=== PATIENT | male | born 1970 | race Caucasian/White ===

== ENCOUNTER 2016-08-31 09:56 | Day surgery (SDC) | payer OTHER ==
[2016-08-30 11:46] VITALS: BMI 45.9
[~2016-08-31] VITALS: Ht 165.1 cm; Wt 124.4 kg
[2016-08-31] VITALS (7 sets, daily range): BP systolic 130–162; BP diastolic 77–91; PULSE 66–82; RESP 14–22; Ht 165.1 cm; Wt 124.4 kg
[~2016-08-31 09:56] MED LIST: ACET325T33 PO; BACTDS PO; CEPH-443 PO; CIPR500T4 PO; CYCL-319 PO; DICL50TA11 PO; DICY10CA60 PO; DOCU-144 PO; HYDR-762 PO; HYDR-906 PO; LISI10TA2 PO; NAPR-260 PO; PRED20TA PO; TAMS-14 PO; ULT50 PO
[2016-08-31] MEDS ORDERED: CEFAZOLIN 2 GM/50 ML (PMX) 50 ML IVPB ONE (10:00)
[2016-08-31] MEDS ORDERED: LISI10TA2 PO (10:37)
[2016-08-31] MEDS ORDERED: CYCL-319 PO (10:38)
[2016-08-31] MEDS ORDERED: LIDOCAINE 100 MG SYRINGE ONE (11:47)
[2016-08-31] MEDS ORDERED: PROPOFOL 40 ML ONE (11:47)
[2016-08-31] MEDS ORDERED: NEOSTIGMINE 3 MG/3 ML SYRINGE ONE (11:47)
[2016-08-31] MEDS ORDERED: GLYCOPYRROLATE 0.4 MG INJ ONE (11:48)
--- NOTE | 2016-08-31 12:20 | HPN ---
Date/Time of Note Date/Time of Note DATE: 08/31/16 TIME: 12:20 Interval H&P Admission Note Pt. seen H&P reviewed: No system changes MAX GARCES MD Aug 31, 2016 12:20
[2016-08-31] MEDS ORDERED: ONDANSETRON 4 MG INJ ONE (12:48)
--- NOTE | 2016-08-31 16:45 | OPR ---
DATE OF OPERATION: 08/31/2016 PREOPERATIVE DIAGNOSIS: Recurrent urethral strictures. POSTOPERATIVE DIAGNOSIS: Recurrent urethral strictures. OPERATION PERFORMED: Internal urethrotomy under direct vision. TECHNIQUE: The patient was brought to the operating room. General anesthesia was induced. The pat ient was then positioned in the lithotomy position. Time out was done. The patient was identified by his name, date and the procedure. He was given 2 grams of Ancef IV at the start of the pro cedure. The genital area was prepped and draped in the usual sterile manner. Then, I tried to pass the visual urethrotome through the urethral meatus, but that was tight, so I had to dilate him with the Woodacre dilators. I dilated the meatus with the Woodacre dilators up to #26. Then, I was a ble to pass the visual urethrotome into the urethra and it was noted that he does have a severe stri cture. It is hardly 1 mm in size in the mid pendulous urethra. Then through that, I did pass a 4 F rench whistle tipped ureteral catheter to basically keep the lumen identified and then using the kni fe, I cut the 12 o'clock position and I kept on cutting until I was able to advance the scope furthe r in and there were additional strictures proximal to it, which I also cut at the 12 o'clock positio n. The sphincter was intact and had no stricture in the membranous urethra. Once we reached the pr ostatic urethra, then I advanced into the bladder and the bladder appeared to be trabeculated. Then on the way out, I did look at the urethra and it is wide open and the scope passed easily through i t. At that moment, I removed the visual urethrotome and used a 21-Azeri cystoscope sheath with a 3 0-degree lens and I advanced that into the urethra all the way to the bladder without any difficulty . Once in the bladder, the bladder was emptied and then I did a cystoscopy with a 30-degree lens an d 70-degree lens. Then the bladder other than being trabeculated did not have any other pathology. Therefore, at the end, I removed the scope and inserted a 22-Azeri 30 mL balloon Robles catheter an d connected to a drainage bag. The patient tolerated the procedure well and was transferred to the recovery room in stable and satisfactory condition. Dictated By: MAX TORRES/MARLEN Conf#: [id number] DID#: [id number]
[2016-08-31] MEDS ORDERED: IBUPROFEN 800 MG TAB PO SCH (21:00)
== END 2016-08-31 15:42 | disposition home or self-care (01) ==
LOC: SDS 09:56
PROVIDERS: ATTEND Urology
DX: N35.9 Urethral stricture, unspecified (principal); I10 Essential (primary) hypertension; Z87.442 Personal history of urinary calculi; J45.20 Mild intermittent asthma, uncomplicated; E66.01 Morbid (severe) obesity due to excess calories; Z68.42 Body mass index [BMI] 45.0-49.9, adult; J44.9 Chronic obstructive pulmonary disease, unspecified
CPT/HCPCS: 52276; J2001; J2405; J2710; Z7610